=== PATIENT | male | born 1975 | race Caucasian/White ===

== ENCOUNTER → 2016-12-04 | Outpatient (CLI) | payer OTHER ==
--- NOTE | 2016-12-04 14:24 | DI ---
Indication: ITS.REASON: K40.90 UNILATERAL INGUINAL HERNIA, W/O OBSTRUCTION OR GANGRENE PROCEDURE: US EXT.NONVASC LMTD. TISSUE RT: Encounter: Initial Comparison: None Technique: Grayscale and color Doppler sonographic imaging of the right inguinal area of pain was performed. Findings/ Impression: No sonographic abnormality seen in the area of pain. No bowel containing hernia, fluid collection or mass. .
== END ==
LOC: IMA 13:29
PROVIDERS: ATTEND Family Medicine
DX: Z03.89 Encounter for observation for other suspected diseases and conditions ruled out (principal)